=== PATIENT | female | born 1985 | race Caucasian/White ===

== ENCOUNTER 2018-03-27 19:12 | Emergency (ER) | payer OTHER ==
[2018-03-27] MEDS ORDERED: Ondansetron HCl/PF 4 MG/2 ML Vial ONE (19:34)
[2018-03-27 19:48] LABS: Band 38 % (5-11); Eosinophils 1 % (0-10); Hemoglobin 17.5 g/dL (12.0-16.0); Lymphocytes 3 % (21-51); MDiff Complete? YES; Mean Corpuscular HGB CONC 33.3 g/dL (32.0-36.0); Mean Corpuscular Hemoglobin 27.7 pg (27.0-31.0); Mean Corpuscular Volume 83.2 fl (81.0-99.0); Mean Platelet Volume 9.6 fL (7.4-10.4); Monocytes 3 % (0-10); Neutrophil 55 % (42-75); PLT Morphology Comment Appears Adequate; Platelet Count 259 thou/uL (130-400); RBC Distribution Width 11.9 % (11.5-14.5); Red Blood Cell (RBC) Count 6.31 mill/uL (4.20-5.40); Toxic Granulation SLIGHT; Vacuoles SLIGHT; White Blood Cell (WBC) Count 17.3 thou/uL (4.8-10.8)
[2018-03-27 19:55] LABS: ALT (SGPT) 17 U/L (8-55); AST (SGOT) 22 U/L (5-34); Albumin 5.2 g/dL (3.5-5.0); Alkaline Phosphatase 63 U/L (40-150); Anion Gap 18 mmol/L (10-20); BUN (Urea Nitrogen) 16 mg/dL (7.0-18.7); Bilirubin, Total 0.6 mg/dL (0.2-1.2); Calc. Creatinine Clearance 0 mL/min (70-130); Calcium 10.7 mg/dL (7.8-10.44); Carbon Dioxide 22 mmol/L (22-29); Chloride 104 mmol/L (98-107); Estimated GFR-MDRD 83; Globulin 3.3 g/dL (2.4-3.5); Glucose 164 mg/dL (70-105); Lipase 27 U/L (8-78); Potassium 4.2 mmol/L (3.5-5.1); Protein, Total 8.5 g/dL (6.0-8.3); Sodium 140 mmol/L (136-145)
[2018-03-27] MEDS ORDERED: Promethazine HCl 25 MG/ML VIAL ONE (20:01)
[2018-03-27 20:14] LABS: BHCG - Serum Negative (NEGATIVE); Pregs Control Background? CLEAR/WHITE (CLR/WHITE); Pregs Control Bar Appear? YES (CONTROL BAR)
== END 2018-03-27 21:00 | disposition home or self-care (01) ==
LOC: SCSER 19:12
DX: R11.2 Nausea with vomiting, unspecified (principal); R19.7 Diarrhea, unspecified; R10.9 Unspecified abdominal pain; D64.9 Anemia, unspecified
CPT/HCPCS: 80053; 83690; 84703; 85025; 96361; 96365; 96372; 96375; J2405; J2550

== ENCOUNTER 2018-03-29 00:32 | Emergency (ER) | payer OTHER ==
[2018-03-29] MEDS ORDERED: Ondansetron HCl/PF 4 MG/2 ML Vial ONE (00:51)
[2018-03-29] MEDS ORDERED: Promethazine HCl 25 MG/ML VIAL ONE (00:51)
[2018-03-29 01:31] LABS: Hemoglobin 13.4 g/dL (12.0-16.0); Mean Corpuscular Hemoglobin 28.2 pg (27.0-31.0); Mean Corpuscular Volume 82.8 fl (81.0-99.0); Mean Platelet Volume 9.9 fL (7.4-10.4); Platelet Count 169 thou/uL (130-400); RBC Distribution Width 12.1 % (11.5-14.5); Red Blood Cell (RBC) Count 4.75 mill/uL (4.20-5.40); White Blood Cell (WBC) Count 4.8 thou/uL (4.8-10.8)
[2018-03-29 01:39] LABS: BHCG - Serum Negative (NEGATIVE); Pregs Control Background? CLEAR/WHITE (CLR/WHITE); Pregs Control Bar Appear? YES (CONTROL BAR)
[2018-03-29 01:48] LABS: Band 1 % (5-11); Eosinophils 1 % (0-10); Lymphocytes 29 % (21-51); MDiff Complete? YES; Monocytes 7 % (0-10); Neutrophil 62 % (42-75)
[2018-03-29 01:49] LABS: Anion Gap 15 mmol/L (10-20)
[2018-03-29 01:51] LABS: Chloride 110 mmol/L (98-107); Potassium 3.3 mmol/L (3.5-5.1); Sodium 142 mmol/L (136-145)
[2018-03-29 01:52] LABS: AST (SGOT) 105 U/L (5-34); Albumin 3.8 g/dL (3.5-5.0); Alkaline Phosphatase 66 U/L (40-150); BUN (Urea Nitrogen) 8 mg/dL (7.0-18.7); Bilirubin, Total 0.4 mg/dL (0.2-1.2); Calc. Creatinine Clearance 0 mL/min (70-130); Calcium 8.3 mg/dL (7.8-10.44); Carbon Dioxide 20 mmol/L (22-29); Estimated GFR-MDRD Greater than 90; Globulin 2.4 g/dL (2.4-3.5); Glucose 91 mg/dL (70-105); Protein, Total 6.2 g/dL (6.0-8.3)
[2018-03-29 01:53] LABS: ALT (SGPT) 62 U/L (8-55); Lipase 15 U/L (8-78)
== END 2018-03-29 03:29 | disposition home or self-care (01) ==
LOC: SCSER 00:32
DX: R10.10 Upper abdominal pain, unspecified (principal); R11.2 Nausea with vomiting, unspecified; D64.9 Anemia, unspecified
CPT/HCPCS: 80053; 83690; 84703; 85025; 96365; 96375; J2405; J2550

== ENCOUNTER 2018-10-04 11:07 | Emergency (ER) | payer OTHER ==
[2018-10-04] MEDS ORDERED: Ondansetron PF 4 MG/2 ML Vial ONE (11:32)
[2018-10-04 11:44] LABS: #Eosinphils 0.1 thou/uL (0.0-0.7); #Lymphocytes 0.7 thou/uL (1.20-3.40); #Monocytes 0.5 thou/uL (0.11-0.59); #Neutrophils 7.4 thou/uL (1.40-6.50); %Basophils 0.3 % (0.0-1.0); %Eosinophils 1.7 % (0.0-10.0); %Lymphocytes 7.4 % (21.0-51.0); %Monocytes 6.1 % (0.0-10.0); %Neutrophils 84.5 % (42.0-75.0); Hemoglobin 12.7 g/dL (12.0-16.0); Mean Corpuscular HGB CONC 31.8 g/dL (32.0-36.0); Mean Corpuscular Hemoglobin 25.8 pg (27.0-31.0); Mean Corpuscular Volume 81.1 fL (78.0-98.0); Mean Platelet Volume 9.6 fL (7.4-10.4); Platelet Count 179 thou/uL (130-400); RBC Distribution Width 12.2 % (11.5-14.5); White Blood Cell (WBC) Count 8.8 thou/uL (4.8-10.8)
[2018-10-04 11:58] LABS: ALT (SGPT) 10 U/L (8-55); AST (SGOT) 16 U/L (5-34); Albumin 3.4 g/dL (3.5-5.0); Alkaline Phosphatase 86 U/L (40-150); Anion Gap 15 mmol/L (10-20); BUN (Urea Nitrogen) 7 mg/dL (7.0-18.7); Bilirubin, Total 0.4 mg/dL (0.2-1.2); Calc. Creatinine Clearance 0 mL/min (70-130); Calcium 8.6 mg/dL (7.8-10.44); Carbon Dioxide 18 mmol/L (22-29); Chloride 109 mmol/L (98-107); Estimated GFR-MDRD Greater than 90; Globulin 3.1 g/dL (2.4-3.5); Glucose 77 mg/dL (70-105); Lipase 21 U/L (8-78); Protein, Total 6.5 g/dL (6.0-8.3); Sodium 138 mmol/L (136-145)
[2018-10-04 12:09] LABS: Bilirubin Negative (Negative); Blood, Urine Negative (Negative); Clarity Hazy (Clear); Glucose, Urine (Dipstick) Negative (Negative); Leukocyte Negative (Negative); Nitrite Negative (Negative); Protein, Urine (Dipstick) Negative (Neg-Trace); Urobilinogen 0.2 mg/dL (0.2-1.0)
[2018-10-04] MEDS ORDERED: Metoclopramide HCl 10 MG/2 ML VIAL ONE (12:26)
== END 2018-10-04 13:43 | disposition home or self-care (01) ==
LOC: SCSER 11:07
DX: O99.89 Other specified diseases and conditions complicating pregnancy, childbirth and the puerperium (principal); R11.0 Nausea; O99.013 Anemia complicating pregnancy, third trimester; Z3A.30 30 weeks gestation of pregnancy
CPT/HCPCS: 80053; 81003; 83690; 85025; 96361; 96374; 96375; J2405; J2765

== ENCOUNTER 2018-11-17 16:34 | Day surgery (SDC) | payer OTHER ==
--- NOTE | 2018-11-17 17:04 | PDOC.LDHP ---
Labor and Delivery H&P Chief complaint: decreased movement HPI: 33 y/o at 37w1d, patient of Dr. Chanel, sent from clinic for decreased movement. Denies VB, LOF, ctx or other concerns. ROS neg for HEENT, cv, pulm, gi, gu, neuro, psych, skin, musculoskeletal or constitutional symptoms other than mentioned above. OB History Details: 1 prior LTCS for gastroschisis Current medications: pre-genny vitamins Previous surgical history: low tranverse CS (x1) Allergies/Adverse Reactions: Allergies Allergy/AdvReac Type Severity Reaction Status Date / Time cephalexin monohydrate Allergy Verified 09/25/15 11:02 [From Keflex] hydrocodone Allergy Verified 09/25/15 11:06 ibuprofen Allergy Verified 09/25/15 11:33 BACTIM Allergy Uncoded 09/25/15 11:02 Social history: none - Physical Exam Vital signs reviewed and normal: yes General: NAD, resting Lungs: nonlabored breathing Abdomen: gravid Extremeties: no edema FHT: category 1 (140s, mod variability, + accels, no decels) [place] contractions every: None - Assessment 33 y/o at 37w1d with reassuring status. BPP: 07/28 - Plan -: D/c home with precautions. Advised to keep all appointments and continue daily activity counts.
--- NOTE | 2018-11-17 18:24 | ULT ---
ULTRASOUND BIOPHYSICAL PROFILE: 11/17/18 INDICATION: Decreased movement. FINDINGS: There is a live intrauterine gestation with cardiac activity documented at 157 beats per minute . Biophysical profile score performed which reveals a score of 2 for tone, breathing, fet al movement and amniotic fluid with total biophysical profile score of 8/8. Positioning of the fetus is vertex. Placenta is located in an anterior location. Amniotic fluid volum e is subjectively normal. TISH is measured at 19 cm. IMPRESSION: Biophysical profile score is 8/8. POS: MARCUS
== END 2018-11-17 18:02 | disposition home or self-care (01) ==
LOC: L&D/OP 16:34
PROVIDERS: ATTEND Obstetrics & Gynecology
DX: O36.8130 Decreased fetal movements, third trimester, not applicable or unspecified (principal); Z3A.37 37 weeks gestation of pregnancy; Z79.899 Other long term (current) drug therapy; Z88.1 Allergy status to other antibiotic agents; Z88.2 Allergy status to sulfonamides; Z88.5 Allergy status to narcotic agent; Z88.6 Allergy status to analgesic agent
CPT/HCPCS: 59025; 76819; 99282

== ENCOUNTER 2018-11-22 08:16 | Inpatient (IN) | payer OTHER ==
[2018-11-22] MEDS ORDERED: Promethazine HCl 25 MG/ML VIAL IM PRN ×3 (08:48→14:27)
[2018-11-22] MEDS ORDERED: Ondansetron PF 4 MG/2 ML Vial IVP PRN ×2 (08:48→13:23)
[2018-11-22] MEDS ORDERED: Bicitra 30 ML UDCUP PO SCH (09:00)
[2018-11-22] MEDS: Lactated Ringer's 1,000 ML IV SCH ×4 (09:00→23:05)
[2018-11-22] MEDS ORDERED: Gentamicin 80 MG/2 ML VIAL IVPB SCH (09:00)
[2018-11-22] MEDS ORDERED: Lactated Ringer's 1,000 ML IV SCH (09:00)
[2018-11-22] MEDS ORDERED: Clindamycin/D5W 900 MG in Premix Bag 1 BAG IVPB SCH (09:00)
[2018-11-22 09:42] LABS: Hemoglobin 13.1 g/dL (12.0-16.0); Mean Corpuscular HGB CONC 33.7 g/dL (32.0-36.0); Mean Corpuscular Hemoglobin 28.1 pg (27.0-31.0); Mean Corpuscular Volume 83.3 fL (78.0-98.0); Mean Platelet Volume 9.5 fL (7.4-10.4); Platelet Count 187 thou/uL (130-400); RBC Distribution Width 12.1 % (11.5-14.5); Red Blood Cell (RBC) Count 4.68 mill/uL (4.20-5.40); White Blood Cell (WBC) Count 7.7 thou/uL (4.8-10.8)
[2018-11-22] MEDS ORDERED: Clindamycin/D5W 900 mg/50 ml Premix Bag ONE (09:43)
[2018-11-22] MEDS ORDERED: PHENYLEPHRINE-NS 100 MCG/ML 10 ML SYRINGE ONE ×2 (10:05→15:33)
[2018-11-22] MEDS ORDERED: Morphine PF 1 MG/ML SYR ONE (10:05)
[2018-11-22] MEDS ORDERED: Oxytocin 10 UNITS/ML VIAL ONE ×2 (10:05→10:43)
[2018-11-22] MEDS ORDERED: Gentamicin Sulfate 80 MG in Premix Bag 1 BAG IVPB SCH ×2 (10:15→11:00)
[2018-11-22 10:26] LABS: Syphilis Antibody Nonreactive (Nonreactive); Syphilis Antibody Index 0.05 S/CO (<1.00 Non-Reactive)
[2018-11-22 10:28] LABS: HBSAg Index 0.19 S/CO (0-0.99); Hep B Surf Ag Non-Reactive S/CO (NonReactive)
[2018-11-22] MEDS ORDERED: Ondansetron PF 4 MG/2 ML Vial ONE ×2 (10:49→15:33)
[2018-11-22] MEDS ORDERED: Fentanyl 100 MCG/2 ML VIAL ONE (10:56)
[2018-11-22 11:04] VITALS: BMI 37.0
[2018-11-22] MEDS ORDERED: ePHEDrine/0.9% NaCl/PF SYRINGE 50 mg/10 ml ONE (11:17)
--- NOTE | 2018-11-22 12:01 | OP ---
DATE OF PROCEDURE: 11/22/2018 PREOPERATIVE DIAGNOSES: 37 weeks. Cephalic presentation. Active labor, rupture of membranes with previous , for repeat. POSTOPERATIVE DIAGNOSES: 37 weeks. Cephalic presentation. Active labor, rupture of membranes with previous , for repeat. PROCEDURE PERFORMED: Repeat low-transverse section without extension. TRANSPORTATION MODELER: REBECA Sanders. ANESTHESIA: Subarachnoid block. ANESTHESIOLOGIST: Jenise Larkin MD. MEDICATIONS: Gentamicin and clindamycin, preincision per protocol. ESTIMATED BLOOD LOSS: Approximately 500 mL. DVT PROPHYLAXIS: SCDs. SPECIMENS: Removed placenta. Three-vessel cord. FINDINGS: 1. Vigorous male infant, cephalic presentation, clear fluid. nursery, Apgars and weight pending. 2. Normal-appearing uterus and hemostasis, status post hysterotomy closure. 3. Clear urine. COUNTS: Correct at the end of the procedure. DISPOSITION: Recovery room in good condition. DESCRIPTION OF PROCEDURE: After obtaining appropriate informed consent, the patient was taken to the operating room, where subarachnoid block achieved without difficulty. The patient was prepped and draped in the usual manner. Previous Pfannenstiel incision identified, incised sharply, carried down the fascia in the midline. This was incised sharply superiorly and laterally with curved Stein scissors. Rectus dissected off sharply superiorly and inferiorly, divided in midline. Peritoneum was entered bluntly, taking care to avoid trauma to the underlying viscera. Parker O retractor placed inside. Vesicouterine peritoneal reflection identified and low-transverse hysterotomy incision made just above this level. It was extended superiorly and laterally with finger fractionization. 's head elevated to the hysterotomy, rest of the infant delivered, suction, cord clamped, cut, and handed off to the team in attendance. Usual cord blood samples obtained. Placenta delivered manually. Hysterotomy, noted to be without extension, closed using a running locking #1 Monocryl x1 layer. Good hemostasis noted. Gutters were irrigated out bilaterally. Reinspection hysterotomy revealed it to be dry. The Parker O retractor was removed. The rectus was inspected, noted to be dry. Fascia reapproximated using an 0 PDS suture x2. Subcutaneous tissue irrigated, rendered hemostatic with Bovie cautery, reapproximated using 2-0 plain gut. Skin was reapproximated using 4-0 Monocryl and Dermabond. The patient taken to recovery room in good condition. Job ID: [id number]
[2018-11-22] MEDS ORDERED: HYDROcodone/Acetaminophen 5/325 mg Tablet PO PRN ×2 (13:23)
[2018-11-22] MEDS ORDERED: Lanolin Ointment 7 GM TUBE TOP PRN (13:23)
[2018-11-22] MEDS ORDERED: NS / Oxytocin 40 units/1000ml 1,000 ML IV SCH (13:23)
[2018-11-22] MEDS ORDERED: Adacel (T-DAP) 0.5 ML SYRINGE IM ONE (13:23)
[2018-11-22] MEDS ORDERED: Eucerin (Mineral Oil/Petrolatum,White) 30 gm Jar TOP PRN (14:27)
[2018-11-22] MEDS ORDERED: L&D-Morphine 4 MG/ML VIAL SLOW IVP PRN (14:27)
[2018-11-22] MEDS ORDERED: Ondansetron HCl/PF 4 MG/2 ML Vial IVP PRN (14:27)
[2018-11-22] MEDS ORDERED: diphenhydrAMINE 50 MG/ML VIAL IVP PRN (14:27)
[2018-11-22] MEDS ORDERED: HYDROmorphone 2 MG/ML VIAL SLOW IVP PRN (14:27)
[2018-11-22] MEDS ORDERED: Meperidine HCl/PF 25 MG/ML VIAL SLOW IVP PRN (14:27)
[2018-11-22] MEDS ORDERED: Naloxone HCl 0.4 mg/ml Vial IVP PRN ×2 (14:27)
[2018-11-22] MEDS ORDERED: Naloxone HCl 0.4 mg/ml Vial IV PRN (14:27)
[2018-11-22] MEDS ORDERED: Promethazine HCl 25 MG SUPP PR PRN (14:27)
[2018-11-22] MEDS ORDERED: Ketorolac Tromethamine 30 MG/ML VIAL IVP SCH (14:30)
[2018-11-22] MEDS ORDERED: Communication Order-Pharmacy FS SCH (14:30)
[2018-11-22] MEDS ORDERED: diphenhydrAMINE 50 MG/ML VIAL ONE (14:53)
[2018-11-22] MEDS ORDERED: Morphine 2 MG/ML SYRINGE SLOW IVP PRN (15:26)
[2018-11-22] MEDS ORDERED: ePHEDrine 50 MG/ML VIAL ONE (15:33)
[2018-11-22] MEDS: Ibuprofen 800 MG TAB PO SCH ×2 (16:02→22:01)
[2018-11-22] MEDS: Ketorolac Tromethamine 30 MG/ML VIAL IVP PRN (16:12)
[2018-11-22] MEDS: Acetaminophen 325 MG TAB PO PRN (20:25)
[2018-11-22] MEDS: diphenhydrAMINE 25 MG CAP PO PRN (21:48)
[2018-11-22] MEDS: Docusate Calcium (SURFAK) 240 MG CAP PO SCH (21:48)
[2018-11-23] MEDS: Ketorolac Tromethamine 30 MG/ML VIAL IVP PRN ×2 (00:55→07:07)
[2018-11-23] MEDS: Simethicone Chewable 80 MG TAB PO PRN ×3 (02:57→22:53)
[2018-11-23] MEDS: Acetaminophen 325 MG TAB PO PRN (02:57)
[2018-11-23 06:35] LABS: Hemoglobin 11.1 g/dL (12.0-16.0); Mean Corpuscular HGB CONC 33.3 g/dL (32.0-36.0); Mean Corpuscular Hemoglobin 28.4 pg (27.0-31.0); Mean Corpuscular Volume 85.5 fL (78.0-98.0); Mean Platelet Volume 8.9 fL (7.4-10.4); Platelet Count 150 thou/uL (130-400); RBC Distribution Width 12.2 % (11.5-14.5); Red Blood Cell (RBC) Count 3.89 mill/uL (4.20-5.40); White Blood Cell (WBC) Count 7.1 thou/uL (4.8-10.8)
[2018-11-23] MEDS: Ibuprofen 800 MG TAB PO SCH ×3 (08:51→23:03)
[2018-11-23] MEDS: Prenatal Vitamin 1 TAB PO SCH (08:53)
[2018-11-23] MEDS: Docusate Calcium (SURFAK) 240 MG CAP PO SCH ×2 (08:53→21:28)
[2018-11-23] MEDS: Lactated Ringer's 1,000 ML IV SCH ×3 (08:54→18:05)
[2018-11-23] MEDS: diphenhydrAMINE 25 MG CAP PO PRN ×3 (08:57→22:53)
[2018-11-23] MEDS: Acetaminophen 1,000 MG in Premix Bag 1 BAG IVPB SCH ×2 (12:13→17:48)
[2018-11-23] MEDS: traMADol HCl 50 MG TAB PO PRN ×2 (15:25→21:17)
[2018-11-24] MEDS: Acetaminophen 1,000 MG in Premix Bag 1 BAG IVPB SCH ×2 (00:34→06:01)
[2018-11-24] MEDS: traMADol HCl 50 MG TAB PO PRN (04:00)
[2018-11-24] MEDS: Ondansetron PF 4 MG/2 ML Vial IVP PRN ×2 (04:36→09:52)
[2018-11-24] MEDS: Lactated Ringer's 1,000 ML IV SCH ×3 (04:53→17:15)
[2018-11-24] MEDS: Ibuprofen 800 MG TAB PO SCH ×2 (06:00→14:34)
[2018-11-24] MEDS: Simethicone Chewable 80 MG TAB PO PRN ×3 (06:10→21:23)
[2018-11-24] MEDS ORDERED: Sodium Chloride 0.9% 10 ML ONE (09:48)
[2018-11-24] MEDS: Prenatal Vitamin 1 TAB PO SCH (09:52)
[2018-11-24] MEDS: Acetaminophen 325 MG TAB PO PRN ×3 (09:52→18:36)
[2018-11-24] MEDS: Docusate Calcium (SURFAK) 240 MG CAP PO SCH ×2 (09:52→20:49)
[2018-11-24] MEDS: Ondansetron ODT 4 MG TAB PO PRN (14:32)
[2018-11-24] MEDS: diphenhydrAMINE 25 MG CAP PO PRN (21:23)
[2018-11-25] MEDS: Acetaminophen 325 MG TAB PO PRN ×5 (00:37→16:41)
[2018-11-25] MEDS: Ibuprofen 800 MG TAB PO SCH (01:18)
[2018-11-25] MEDS: Lactated Ringer's 1,000 ML IV SCH ×2 (01:19→09:27)
[2018-11-25 08:12] VITALS: BP 105/51; TEMP 98.7
[2018-11-25] MEDS: Docusate Calcium (SURFAK) 240 MG CAP PO SCH (08:48)
[2018-11-25] MEDS: Prenatal Vitamin 1 TAB PO SCH (08:48)
[2018-11-25] MEDS: Simethicone Chewable 80 MG TAB PO PRN ×2 (08:48→16:42)
[2018-11-25] MEDS: Ondansetron ODT 4 MG TAB PO PRN ×2 (09:21→14:55)
[2018-11-25] MEDS ORDERED: Acetaminophen/Codeine 12.5 ML UDCUP PO PRN (09:53)
== END 2018-11-25 17:35 | disposition home or self-care (01) | DRG 788 ==
LOC: L&D/OP 08:16 → L&D 09:16 → 3SW 13:51
PROVIDERS: ADMIT Obstetrics & Gynecology; ATTEND Obstetrics & Gynecology
PROC: 10D00Z1 Extraction of Products of Conception, Low, Open Approach (ICD-10-PCS; principal; 2018-11-22)
DX: O34.211 Maternal care for low transverse scar from previous cesarean delivery (principal); Z3A.37 37 weeks gestation of pregnancy; Z37.0 Single live birth
CPT/HCPCS: 36415; 51702; 85027; 86780; 86850; 86900; 86901; 87340; J0131; J1200; J1580; J1885; J2274; J2310; J2405; J2550; J2590; J3010; J3490; Q0162; Q0163

== ENCOUNTER 2025-08-30 07:52 | Outpatient (CLI) | payer OTHER | END 2025-08-30 07:53 | disposition home or self-care (01) | LOC: SCSMRI 07:52 | PROVIDERS: ATTEND Nurse Practitioner Family | DX: S39.012A Strain of muscle, fascia and tendon of lower back, initial encounter (principal); M48.061 Spinal stenosis, lumbar region without neurogenic claudication; M48.07 Spinal stenosis, lumbosacral region | CPT/HCPCS: 72158 ==